=== PATIENT | male | born 1955 | race Caucasian/White ===

== ENCOUNTER 2021-02-14 17:56 | Inpatient (IN) | payer BC, MEDICARE ==
[~2021-02-14] VITALS: Ht 177.8 cm; Wt 130.9 kg
[~2021-02-14 17:56] MED LIST: Acetaminophen325 M1 PO; GLIP5ER PO; JANUMET XR 1001 EAC1 PO; PRED20 PO; VISBIOME 112.51 EACH PO; XARELTO20 MG PO
[2021-02-14 19:18] LABS: BASOPHILS ABSOLUTE AUTO 0.07 K/mm3 (0.00-0.23); BASOPHILS PERCENT AUTO 0 % (0-2); EOSINOPHILS ABSOLUTE AUTO 0.14 K/mm3 (0.00-0.68); EOSINOPHILS PERCENT AUTO 1 % (0-6); Hematocrit 33.7 % (37.0-53.0); Hemoglobin 11.1 g/dL (13.5-17.5); IMMATURE GRAN PERCENT AUTO 1 % (0-1); LYMPHOCYTES PERCENT AUTO 15 % (21-46); MONOCYTES PERCENT AUTO 10 % (4-13); Mean Corpuscular HGB Conc 32.9 g/dL (31.5-36.5); Mean Corpuscular Volume 91 fL (80-100); NEUTROPHILS ABSOLUTE AUTO 11.76 K/mm3 (1.96-9.15); NEUTROPHILS PERCENT AUTO 73 % (41-73); Platelet Count 300 K/mm3 (150-400); RDW Coefficient Variation 14.6 % (11.7-14.2); RDW Standard Deviation 49.1 fL (35.1-46.3); White Blood Cell Count 16.07 K/mm3 (4.00-11.30)
[2021-02-14 20:10] LABS: Alanine Aminotransfer (ALT/SGP 17 U/L (12-78); Albumin, Blood 2.8 g/dL (3.4-5.0); Albumin/Globulin Ratio 0.6 (0.8-1.8); Alk Phos 82 U/L (50-136); Anion Gap 8 mmol/L (6-16); Aspartate Aminotrans (AST/SGOT 14 U/L (12-37); Bilirubin, Total 0.8 mg/dL (0.1-1.0); Blood Urea Nitrogen 44 mg/dL (8-24); Bun/Creatinine Ratio 23.2 (12.0-20.0); CO2, Blood 22 mmol/L (21-32); Chloride, Blood 102 mmol/L (98-108); Globulin, Blood 4.8 g/dL (2.2-4.0); Glomerular Filtration Rate 36 (60-); Glucose, Blood 150 mg/dL (70-99); Potassium, Blood 4.2 mmol/L (3.5-5.5); Sodium, Blood 132 mmol/L (136-145); Total Protein, Blood 7.6 g/dL (6.4-8.2)
[2021-02-14 20:31] LABS: C-REACTIVE PROTEIN, EXT RANGE >19.000 mg/dL (0.000-0.300)
[2021-02-14] MEDS ORDERED: ATOR10 PO (20:33)
[2021-02-14] MEDS ORDERED: COLCRYS0.6 M1 PO (20:33)
[2021-02-14] MEDS ORDERED: LANSOPRAZOLE30 MG PO (20:33)
[2021-02-14] MEDS ORDERED: OMEGA-3 FISH O1 EAC6 PO (20:33)
[2021-02-14] MEDS ORDERED: BASAGLAR K100 UNIT/3 SC (20:34)
[2021-02-14] MEDS ORDERED: JANUMET XR 1001 EAC1 PO (20:34)
[2021-02-14] MEDS ORDERED: HUMALOG KW100 UNIT/1 SC (20:35)
[2021-02-14] MEDS ORDERED: GLIP5ER PO (20:36)
[2021-02-14] MEDS ORDERED: LISINOPRIL-HCT1 EAC1 PO (20:36)
[2021-02-14] MEDS ORDERED: Aspir 8181 MG PO (20:37)
[2021-02-14 21:07] LABS: Body Fluid Crystals NEG (NEGATIVE)
[2021-02-14] MEDS ORDERED: GLUCOPHAGE1000 M1 PO (21:12)
[2021-02-14] MEDS ORDERED: OZEMPIC0.25 MG/0. SC (21:14)
[2021-02-14] MEDS ORDERED: Vitamin B Comple1 EA PO (21:15)
[2021-02-14] MEDS ORDERED: VITAMIN D5000 UNIT PO (21:15)
[2021-02-14] MEDS ORDERED: MONDOXYNE NL100 MG PO (21:16)
[2021-02-14 23:44] LABS: Source, Urine Clean Catch
[2021-02-14 23:49] LABS: Appearance, Urine Clear (Clear); Bilirubin, Urine Neg (Neg); Blood, Urine 1+ (Neg); Color, Urine Amber (P-Yellow); Glucose Qualitative, Urine Neg (Neg); Ketones, Urine Neg (Neg); Leukocyte Esterase, Urine Neg (Neg); Nitrite, Urine Neg (Neg); Protein, Urine 2+ (Neg); Specific Gravity, Urine 1.015 (1.003-1.022); Urobilinogen, Urine NORM (Normal)
[2021-02-15 00:02] LABS: Amorphous Light (0-Heavy); Bacteria Few /hpf; Red Blood Cells, Urine 0-2 /hpf (0-2); Squamous Epithelial Cells Not Seen /hpf (Few); White Blood Cells, Urine 0-2 /hpf (0-5)
--- NOTE | 2021-02-15 00:20 | NUR ---
ASSUME CARE: RECEIVED REPORT FROM ROGELIO WASHINGTON WHO BROUGHT PT FROM ED AND WAS TRANSFERRED TO ICU BED. HE IS A&O X 4 AND IS ABLE TO AMBULATE. ON ROOM AIR HE IS SATING 94%. HR IS 100'S AND BP IS SOFT BUT MAP>65. HE IS NPO, DENIES PAIN, AND IS AFEBRILE. HIS LEFT FOOT IS RED, SWOLLEN, AND TENDER TO TOUCH. SEE SHIFT UPDATE FOR DETAILS.
[2021-02-15 00:26] LABS: SARS-Cov-2 (COVID-19) PCR, MMC NEGATIVE (NEGATIVE)
[2021-02-15 03:37] LABS: BASOPHILS ABSOLUTE AUTO 0.08 K/mm3 (0.00-0.23); BASOPHILS PERCENT AUTO 1 % (0-2); EOSINOPHILS ABSOLUTE AUTO 0.17 K/mm3 (0.00-0.68); EOSINOPHILS PERCENT AUTO 1 % (0-6); Hematocrit 31.3 % (37.0-53.0); Hemoglobin 10.2 g/dL (13.5-17.5); IMMATURE GRAN ABSOLUTE AUTO 0.19 K/mm3 (0.00-0.10); IMMATURE GRAN PERCENT AUTO 1 % (0-1); LYMPHOCYTES ABSOLUTE AUTO 2.29 K/mm3 (0.84-5.20); LYMPHOCYTES PERCENT AUTO 15 % (21-46); MONOCYTES ABSOLUTE AUTO 1.59 K/mm3 (0.16-1.47); MONOCYTES PERCENT AUTO 10 % (4-13); Mean Corpuscular HGB 30.3 pg (26.0-34.0); Mean Corpuscular HGB Conc 32.6 g/dL (31.5-36.5); Mean Corpuscular Volume 93 fL (80-100); Mean Platelet Volume 9.7 fL (9.1-12.4); NEUTROPHILS ABSOLUTE AUTO 11.12 K/mm3 (1.96-9.15); NEUTROPHILS PERCENT AUTO 72 % (41-73); Platelet Count 246 K/mm3 (150-400); RDW Coefficient Variation 14.6 % (11.7-14.2); Red Blood Cell Count 3.37 M/mm3 (4.30-5.90); White Blood Cell Count 15.44 K/mm3 (4.00-11.30)
[2021-02-15 04:04] LABS: Albumin, Blood 2.4 g/dL (3.4-5.0); Albumin/Globulin Ratio 0.5 (0.8-1.8); Bilirubin, Total 0.7 mg/dL (0.1-1.0); Bun/Creatinine Ratio 24.6 (12.0-20.0); Calcium, Blood 8.7 mg/dL (8.5-10.1); Creatinine, Blood 1.75 mg/dL (0.60-1.20); Globulin, Blood 4.6 g/dL (2.2-4.0); Potassium, Blood 3.9 mmol/L (3.5-5.5)
--- NOTE | 2021-02-15 06:24 | NUR ---
SHIFT SUMMARY: PT LYING IN BED W/ EYES CLOSED ON ROOM AIR CURRENTLY SATING 93%. HR IS 118, BP 114/60, AND TMAX OF 100.8. HE IS A&O X 4 AND AMBULATES W/ A WALKER. HE USES A URINAL BUT GETS UP TO THE TOLIET FOR BM. HE IS NPO AND DENIES PAIN. HIS LEFT FOOT IS RED, SWOLLEN, AND TENDER TO TOUCH. NS INFUSING AT 100ML/HR. WILL REPORT TO ONCOMING RN WHEN AVAILABLE.
--- NOTE | 2021-02-15 07:15 | NUR ---
Assumed care. Report received from nightshift RN. Pt resting in bed at this time, on room air. IV access x2 in L/arm. NS running at 100 ml/hr. Pt alert and oriented, able to easily communicate needs and use call light. No acute needs noted at this time, will continue to monitor.
[2021-02-15 09:21] LABS: Vancomycin, Random 15.1 ug/mL
--- NOTE | 2021-02-15 10:26 | NUR ---
Physician contacted. Dr. Bain contacted about results of PT ankle CT, his recommendation was two weeks of at home antibiotic therapy after IV antibiotics complete and refer to Dr Lawson for medication/npo updates. Obtained orders from Dr. Lawson for status change to Medical w/o tele, off NPO to ADA diet and CPAP for sleep. Dr Lawson is also reviewing patient's medication list at this time.
--- NOTE | 2021-02-15 18:05 | NUR ---
Shift summary. Pt rested in bed throughout shift. Pt alert and oriented. On room air w/CPAP for sleep. NS running at 100 ml/hr. Pt reported improvement in pain/swelling of left ankle this shift. See shift assessment for details. Will continue to monitor and report off to nightshift RN.
--- NOTE | 2021-02-16 07:36 | NUR ---
ASSUMED CARE: DR BARBOUR CAME TO SEE PT THIS AM AND IS AWARE OF BLOOD CULTURE. ORDERED TO TAKE PT OFF VANCO AND CONTINUE CEFEPIME AT THIS TIME. PLANS TO SWITCH PT TO ORAL ANTIBIOTICS LATER THIS SHIFT AND POSSIBLE DC TOMORROW. PT AGREEABLE TO THIS PLAN. PT UPRIGHT IN CHAIR AT THIS TIME. NO ACUTE NEEDS OR CONCERNS.
[2021-02-16 11:39] LABS: BASOPHILS ABSOLUTE AUTO 0.08 K/mm3 (0.00-0.23); BASOPHILS PERCENT AUTO 1 % (0-2); EOSINOPHILS ABSOLUTE AUTO 0.27 K/mm3 (0.00-0.68); EOSINOPHILS PERCENT AUTO 2 % (0-6); IMMATURE GRAN ABSOLUTE AUTO 0.13 K/mm3 (0.00-0.10); IMMATURE GRAN PERCENT AUTO 1 % (0-1); LYMPHOCYTES ABSOLUTE AUTO 1.51 K/mm3 (0.84-5.20); LYMPHOCYTES PERCENT AUTO 12 % (21-46); MONOCYTES ABSOLUTE AUTO 0.92 K/mm3 (0.16-1.47); MONOCYTES PERCENT AUTO 7 % (4-13); Mean Corpuscular HGB 29.7 pg (26.0-34.0); Mean Corpuscular HGB Conc 32.3 g/dL (31.5-36.5); Mean Corpuscular Volume 92 fL (80-100); Mean Platelet Volume 9.8 fL (9.1-12.4); NEUTROPHILS ABSOLUTE AUTO 9.95 K/mm3 (1.96-9.15); NEUTROPHILS PERCENT AUTO 77 % (41-73); Platelet Count 285 K/mm3 (150-400); RDW Coefficient Variation 14.6 % (11.7-14.2); RDW Standard Deviation 49.2 fL (35.1-46.3); Red Blood Cell Count 3.37 M/mm3 (4.30-5.90); White Blood Cell Count 12.86 K/mm3 (4.00-11.30)
[2021-02-16 12:07] LABS: Albumin, Blood 2.2 g/dL (3.4-5.0); Anion Gap 8 mmol/L (6-16); Blood Urea Nitrogen 26 mg/dL (8-24); Bun/Creatinine Ratio 21.8 (12.0-20.0); CO2, Blood 24 mmol/L (21-32); Calcium, Blood 8.8 mg/dL (8.5-10.1); Chloride, Blood 105 mmol/L (98-108); Creatinine, Blood 1.19 mg/dL (0.60-1.20); Glomerular Filtration Rate >60 (60-); Glucose, Blood 226 mg/dL (70-99); Phosphorus, Blood 2.1 mg/dL (2.5-4.9); Potassium, Blood 3.9 mmol/L (3.5-5.5); Sodium, Blood 137 mmol/L (136-145)
[2021-02-16] MEDS ORDERED: Cleocin HCl150 MG PO (16:36)
--- NOTE | 2021-02-16 17:01 | NUR ---
DR BARBOUR CAME TO SEE PT AND ORDERED FOR DISCHARGE. PRESCRIPTION CALLED INTO [facility]. PT'S IV DC'D WNL. PT GIVEN INSTRUCTIONS REGARDING INFECTION MONITORING AND SYMPTOMS TO WATCH FOR. PT AWARE OF WHAT MEDICATIONS TO CONTINUE AND WHICH TO STOP. PT ALSO INSTRUCTED TO TAKE YOGURT OR PROBIOTICS TO HELP WITH SIDE EFFECTS OF ANTIBIOTICS. DENIED FURTHER NEEDS OR CONCERNS. ESCORTED OUT VIA WHEEL CHAIR BY HOSPITAL STAFF
--- NOTE | 2021-02-17 08:26 | NUR ---
Per Dr. Lawson discharge appropriate for 02/16/21. Spoke with patient and he is aware of discharge and does not oppose. Patient s is with him at time of discharge and she is driving him to their residence. Patient has the following DME at his residence in good repair: bathroom set-up: both WIS and shower/ tub,shower chair available, grab bars outside WIS; tall toilet c/ grab bars/wheeled walker/front wheeled walker. Patient has a scheduled follow up appointment with Dr. Cohn on 02/22 at 3:30 pm. Patient also has a routine follow up on Mar 07. Patient has a strong and stable support network. No barriers to discharge at this time.
== END 2021-02-16 17:01 | disposition home or self-care (01) | DRG 872 ==
LOC: ER 17:56 → ICUW 23:28
PROVIDERS: Family Medicine; Physician Assistant; Student in an Organized Health Care Education/Training Program; ADMIT Internal Medicine
PROC: 0S9G3ZX Drainage of Left Ankle Joint, Percutaneous Approach, Diagnostic (ICD-10-PCS; principal; 2021-02-14)
DX: A41.9 Sepsis, unspecified organism (principal); E87.1 Hypo-osmolality and hyponatremia; N17.9 Acute kidney failure, unspecified; L03.115 Cellulitis of right lower limb; Z68.41 Body mass index [BMI] 40.0-44.9, adult; Z20.822 Contact with and (suspected) exposure to COVID-19; M10.9 Gout, unspecified; E66.9 Obesity, unspecified; I10 Essential (primary) hypertension; E11.9 Type 2 diabetes mellitus without complications; Z79.4 Long term (current) use of insulin; Z86.16 Personal history of COVID-19; Z79.82 Long term (current) use of aspirin; Z79.899 Other long term (current) drug therapy
CPT/HCPCS: 20605; 36415; 51798; 71045; 73701; 80053; 80069; 80202; 81001; 82947; 83605; 83880; 85025; 85651; 86140; 87040; 87070; 87075; 87205; 89060; 93005; 93010; 94660; 96365; 96375; 97110; 97162; 97165; 99285-25; A9270; J0692; J1170; J1644; J1815; J2543; J3370; J7030; J7050; J7120; Q9967; U0004

== ENCOUNTER → 2021-06-25 | Outpatient (CLI) | payer BC ==
[~2021-06-25] MED LIST changes: +ATOR10 PO; +Aspir 8181 MG PO; +BASAGLAR K100 UNIT/3 SC; +COLCRYS0.6 M1 PO; +Cleocin HCl150 MG PO; +GLUCOPHAGE1000 M1 PO; +HUMALOG KW100 UNIT/1 SC; +LANSOPRAZOLE30 MG PO; +LISINOPRIL-HCT1 EAC1 PO; +MONDOXYNE NL100 MG PO; +OMEGA-3 FISH O1 EAC6 PO; +OZEMPIC0.25 MG/0. SC; +VITAMIN D5000 UNIT PO; +Vitamin B Comple1 EA PO
[2021-06-25 14:46] LABS: BASOPHILS ABSOLUTE AUTO 0.12 K/mm3 (0.00-0.23); BASOPHILS PERCENT AUTO 1 % (0-2); EOSINOPHILS ABSOLUTE AUTO 0.43 K/mm3 (0.00-0.68); EOSINOPHILS PERCENT AUTO 5 % (0-6); Hematocrit 40.7 % (37.0-53.0); Hemoglobin 13.6 g/dL (13.5-17.5); IMMATURE GRAN ABSOLUTE AUTO 0.05 K/mm3 (0.00-0.10); IMMATURE GRAN PERCENT AUTO 1 % (0-1); LYMPHOCYTES ABSOLUTE AUTO 3.84 K/mm3 (0.84-5.20); LYMPHOCYTES PERCENT AUTO 43 % (21-46); MONOCYTES ABSOLUTE AUTO 0.71 K/mm3 (0.16-1.47); MONOCYTES PERCENT AUTO 8 % (4-13); Mean Corpuscular HGB 28.9 pg (26.0-34.0); Mean Corpuscular HGB Conc 33.4 g/dL (31.5-36.5); Mean Corpuscular Volume 86 fL (80-100); Mean Platelet Volume 9.9 fL (9.1-12.4); NEUTROPHILS ABSOLUTE AUTO 3.88 K/mm3 (1.96-9.15); NEUTROPHILS PERCENT AUTO 43 % (41-73); Platelet Count 262 K/mm3 (150-400); RDW Coefficient Variation 15.2 % (11.7-14.2); RDW Standard Deviation 47.4 fL (35.1-46.3); Red Blood Cell Count 4.71 M/mm3 (4.30-5.90); White Blood Cell Count 9.03 K/mm3 (4.00-11.30)
[2021-06-25 14:57] LABS: Albumin, Blood 3.6 g/dL (3.4-5.0); Albumin/Globulin Ratio 0.8 (0.8-1.8); Bilirubin, Total 0.5 mg/dL (0.1-1.0); Bun/Creatinine Ratio 18.6 (12.0-20.0); Calcium, Blood 9.5 mg/dL (8.5-10.1); Creatinine, Blood 1.67 mg/dL (0.60-1.20); Globulin, Blood 4.4 g/dL (2.2-4.0); Potassium, Blood 4.6 mmol/L (3.5-5.5); Uric Acid, Blood 10.4 mg/dL (3.5-7.2)
== END ==
LOC: LAB SHORT 14:39
PROVIDERS: General Practice
DX: S96.911A Strain of unspecified muscle and tendon at ankle and foot level, right foot, initial encounter (principal); Z79.82 Long term (current) use of aspirin
CPT/HCPCS: 80053; 84550; 85025; 85651

== ENCOUNTER → 2022-02-10 | Outpatient (CLI) | payer BC | END | disposition home or self-care (01) | LOC: LAB SHORT 13:22 → LAB 13:22 | DX: N39.0 Urinary tract infection, site not specified (principal) | CPT/HCPCS: 87077; 87086; 87186 ==

== ENCOUNTER 2022-03-25 11:54 | Emergency (ER) | payer BC ==
[~2022-03-25] VITALS: Ht 177.8 cm; Wt 122.5 kg
[2022-03-25 12:28] LABS: BASOPHILS ABSOLUTE AUTO 0.09 K/mm3 (0.00-0.23); BASOPHILS PERCENT AUTO 1 % (0-2); EOSINOPHILS ABSOLUTE AUTO 0.33 K/mm3 (0.00-0.68); EOSINOPHILS PERCENT AUTO 4 % (0-6); Hematocrit 45.1 % (37.0-53.0); IMMATURE GRAN ABSOLUTE AUTO 0.05 K/mm3 (0.00-0.10); IMMATURE GRAN PERCENT AUTO 1 % (0-1); LYMPHOCYTES ABSOLUTE AUTO 2.67 K/mm3 (0.84-5.20); LYMPHOCYTES PERCENT AUTO 34 % (21-46); MONOCYTES PERCENT AUTO 8 % (4-13); Mean Corpuscular HGB 29.9 pg (26.0-34.0); Mean Corpuscular HGB Conc 33.3 g/dL (31.5-36.5); Mean Corpuscular Volume 90 fL (80-100); Mean Platelet Volume 9.9 fL (9.1-12.4); NEUTROPHILS ABSOLUTE AUTO 4.14 K/mm3 (1.96-9.15); NEUTROPHILS PERCENT AUTO 53 % (41-73); Platelet Count 209 K/mm3 (150-400); RDW Coefficient Variation 13.4 % (11.7-14.2); RDW Standard Deviation 44.1 fL (35.1-46.3); Red Blood Cell Count 5.01 M/mm3 (4.30-5.90); White Blood Cell Count 7.88 K/mm3 (4.00-11.30)
[2022-03-25 12:50] LABS: Albumin, Blood 3.6 g/dL (3.4-5.0); Albumin/Globulin Ratio 0.8 (0.8-1.8); Bilirubin, Total 0.4 mg/dL (0.1-1.0); Bun/Creatinine Ratio 22.3 (12.0-20.0); Calcium, Blood 10.4 mg/dL (8.5-10.1); Creatinine, Blood 1.12 mg/dL (0.60-1.20); Globulin, Blood 4.4 g/dL (2.2-4.0); Potassium, Blood 4.7 mmol/L (3.5-5.5)
== END 2022-03-25 15:37 | disposition home or self-care (01) ==
LOC: ER 11:54
PROVIDERS: Student in an Organized Health Care Education/Training Program
DX: R10.10 Upper abdominal pain, unspecified (principal); E11.9 Type 2 diabetes mellitus without complications; I10 Essential (primary) hypertension; Z79.4 Long term (current) use of insulin; Z79.899 Other long term (current) drug therapy
CPT/HCPCS: 36415; 71045; 80053; 83690; 84484; 85025

== ENCOUNTER 2024-02-24 09:18 | Emergency (ER) | payer MEDICARE ==
[~2024-02-24] VITALS: Ht 177.8 cm; Wt 124.7 kg
[~2024-02-24 09:18] MED LIST changes: +ALLO300 PO; +AMOCLA875 PO; +CEFP200 PO; +HUMALOG KW100 UNIT/1; +INSULANI SC; +JARDIANCE10 MG PO; +LACT PO; +Lisinopril-Hct1 EAC4 PO; +MIRALAX1714 PO; +RYBELSUS14 MG PO; +TRULICITY3 MG/0.5 M SC
[2024-02-24 09:59] VITALS: BP 160/97
== END 2024-02-24 10:49 | disposition home or self-care (01) ==
LOC: ER 09:18
DX: M77.11 Lateral epicondylitis, right elbow (principal); M77.01 Medial epicondylitis, right elbow; E11.9 Type 2 diabetes mellitus without complications; I10 Essential (primary) hypertension; Z79.82 Long term (current) use of aspirin; Z79.84 Long term (current) use of oral hypoglycemic drugs; Z79.4 Long term (current) use of insulin; Z79.899 Other long term (current) drug therapy
CPT/HCPCS: 73080; 99283-25

== ENCOUNTER 2024-06-17 18:15 | Inpatient (IN) | payer MEDICARE ==
[~2024-06-17] VITALS: Ht 172.7 cm; Wt 109.7 kg
[2024-06-17 19:23] LABS: BASOPHILS ABSOLUTE AUTO 0.11 K/mm3 (0.00-0.23); BASOPHILS PERCENT AUTO 1 % (0-2); EOSINOPHILS ABSOLUTE AUTO 0.34 K/mm3 (0.00-0.68); EOSINOPHILS PERCENT AUTO 4 % (0-6); IMMATURE GRAN ABSOLUTE AUTO 0.04 K/mm3 (0.00-0.10); IMMATURE GRAN PERCENT AUTO 0 % (0-1); LYMPHOCYTES ABSOLUTE AUTO 1.93 K/mm3 (0.84-5.20); LYMPHOCYTES PERCENT AUTO 22 % (21-46); MONOCYTES ABSOLUTE AUTO 0.97 K/mm3 (0.16-1.47); MONOCYTES PERCENT AUTO 11 % (4-13); Mean Corpuscular HGB 29.2 pg (26.0-34.0); Mean Corpuscular HGB Conc 34.1 g/dL (31.5-36.5); Mean Corpuscular Volume 85 fL (80-100); Mean Platelet Volume 10.4 fL (9.1-12.4); NEUTROPHILS ABSOLUTE AUTO 5.51 K/mm3 (1.96-9.15); NEUTROPHILS PERCENT AUTO 62 % (41-73); Platelet Count 277 K/mm3 (150-400); RDW Coefficient Variation 14.6 % (11.7-14.2)
[2024-06-17 19:45] LABS: Alanine Aminotransfer (ALT/SGP 46 U/L (12-78); Albumin, Blood 3.9 g/dL (3.4-5.0); Albumin/Globulin Ratio 0.9 (0.8-1.8); Alk Phos 110 U/L (50-136); Anion Gap 16 mmol/L (3-11); Aspartate Aminotrans (AST/SGOT 31 U/L (12-37); Bilirubin, Total 0.5 mg/dL (0.1-1.0); Blood Urea Nitrogen 142 mg/dL (8-24); Bun/Creatinine Ratio 34.3 (12.0-20.0); CO2, Blood 18 mmol/L (21-32); Calcium, Blood 9.8 mg/dL (8.5-10.1); Chloride, Blood 99 mmol/L (98-108); Creatinine, Blood 4.14 mg/dL (0.60-1.20); Globulin, Blood 4.5 g/dL (2.2-4.0); Glomerular Filtration Rate 15 (60-); Glucose, Blood 233 mg/dL (70-99); Potassium, Blood 4.7 mmol/L (3.5-5.5); Sodium, Blood 128 mmol/L (136-145); Total Protein, Blood 8.4 g/dL (6.4-8.2)
[2024-06-17] MEDS ORDERED: Lactated Ringer's 1,000 ML IV ONE ×2 (20:55→21:05)
[2024-06-17 21:15] LABS: Influenza A, PCR NEGATIVE (NEGATIVE); Influenza B, PCR NEGATIVE (NEGATIVE); Resp Syncytial Virus, PCR NEGATIVE (NEGATIVE); SARS-Cov-2 (COVID-19) PCR, MMC NEGATIVE (NEGATIVE)
[2024-06-17 21:31] LABS: Base Excess Venous -8.1 mmol/L; Bicarbonate Venous 18.2 mmol/L (24.0-30.0); PCO2 Venous 36.7 mmHg (38-42); pH Blood Venous 7.31 (7.34-7.37)
[2024-06-17 21:38] LABS: Salicylate <1.7 mg/dL (2.8-20.0)
[2024-06-17 21:40] LABS: Acetaminophen, Random <2.0 ug/mL (10.0-30.0)
[2024-06-17] MEDS ORDERED: Acetaminophen 325 MG TABLET PO PRN (22:40)
[2024-06-17] MEDS ORDERED: Ondansetron HCl 2 MG / ML 2ML Vial IV PRN (22:40)
[2024-06-17] MEDS ORDERED: FLU VACC TS2024-25(6MOS UP)/PF 45 MCG/0.5 ML SYRINGE IM ONE (22:40)
[2024-06-17] MEDS ORDERED: Sodium Bicarb 8.4% Inj 100 MEQ in Sodium Chloride 0.45% 1,000 ML IV SCH (23:00)
[2024-06-17] MEDS ORDERED: Insulin Glargine-Yfgn 100 Unit/mL 3 ML SYR SC SCH (23:00)
[2024-06-18] VITALS (8 sets, daily range): BP systolic 96–116; BP diastolic 51–72
[2024-06-18] MEDS ORDERED: RYBELSUS14 MG PO (00:47)
[2024-06-18] MEDS ORDERED: CLIN150 PO (00:48)
[2024-06-18] MEDS ORDERED: LANS30EC PO (00:51)
[2024-06-18] MEDS ORDERED: EPIPEN0.3 MG/0.3 IM (00:52)
[2024-06-18 01:04] LABS: Albumin, Blood 3.3 g/dL (3.4-5.0); Anion Gap 11 mmol/L (3-11); Blood Urea Nitrogen 136 mg/dL (8-24); Bun/Creatinine Ratio 34.7 (12.0-20.0); CO2, Blood 21 mmol/L (21-32); Calcium, Blood 9.4 mg/dL (8.5-10.1); Chloride, Blood 101 mmol/L (98-108); Creatinine, Blood 3.92 mg/dL (0.60-1.20); Glomerular Filtration Rate 16 (60-); Glucose, Blood 148 mg/dL (70-99); Potassium, Blood 4.3 mmol/L (3.5-5.5); Sodium, Blood 129 mmol/L (136-145)
--- NOTE | 2024-06-18 04:07 | NUR ---
UPDATE JÚNIOR FROM [place] [facility] CALLED FOR [facility] REGARDING PT CONDITION. UPDATE ON PATIENT GIVEN, [facility] TO CALL BACK LATER THIS AM FOR MORNING LABS.
[2024-06-18 04:15] LABS: BASOPHILS PERCENT AUTO 1 % (0-2); EOSINOPHILS ABSOLUTE AUTO 0.51 K/mm3 (0.00-0.68); EOSINOPHILS PERCENT AUTO 7 % (0-6); Hematocrit 34.5 % (37.0-53.0); Hemoglobin 11.8 g/dL (13.5-17.5); IMMATURE GRAN ABSOLUTE AUTO 0.02 K/mm3 (0.00-0.10); IMMATURE GRAN PERCENT AUTO 0 % (0-1); LYMPHOCYTES ABSOLUTE AUTO 2.55 K/mm3 (0.84-5.20); LYMPHOCYTES PERCENT AUTO 35 % (21-46); MONOCYTES ABSOLUTE AUTO 0.82 K/mm3 (0.16-1.47); MONOCYTES PERCENT AUTO 11 % (4-13); Mean Corpuscular HGB 29.1 pg (26.0-34.0); Mean Corpuscular HGB Conc 34.2 g/dL (31.5-36.5); Mean Corpuscular Volume 85 fL (80-100); Mean Platelet Volume 10.5 fL (9.1-12.4); NEUTROPHILS ABSOLUTE AUTO 3.35 K/mm3 (1.96-9.15); NEUTROPHILS PERCENT AUTO 46 % (41-73); Platelet Count 212 K/mm3 (150-400); RDW Coefficient Variation 14.6 % (11.7-14.2); Red Blood Cell Count 4.05 M/mm3 (4.30-5.90); White Blood Cell Count 7.35 K/mm3 (4.00-11.30)
[2024-06-18 04:49] LABS: Albumin, Blood 3.1 g/dL (3.4-5.0); Albumin/Globulin Ratio 0.8 (0.8-1.8); Bilirubin, Total 0.4 mg/dL (0.1-1.0); Bun/Creatinine Ratio 36.1 (12.0-20.0); Calcium, Blood 9.2 mg/dL (8.5-10.1); Creatinine, Blood 3.57 mg/dL (0.60-1.20); Globulin, Blood 3.7 g/dL (2.2-4.0); Magnesium, Blood 2.5 mg/dL (1.6-2.4); Potassium, Blood 4.1 mmol/L (3.5-5.5); Total Protein, Blood 6.8 g/dL (6.4-8.2)
[2024-06-18] MEDS ORDERED: Insulin Human Lispro 100 Units/ML 3ML Syringe SC SCH (07:30)
[2024-06-18] MEDS ORDERED: Heparin Sodium 5000 Units/ML 1ML MDV SC SCH (09:00)
[2024-06-18] MEDS ORDERED: Misc. Tablet PO SCH (13:00)
[2024-06-18] MEDS ORDERED: OxyCODONE HCL 5 MG TAB PO PRN (16:10)
[2024-06-18] MEDS ORDERED: Pantoprazole Sodium 40 MG Tab PO SCH (16:30)
--- NOTE | 2024-06-18 18:30 | NUR ---
SHIFT SUMMARY: PT A&OX4, FOLLOWS COMMANDS AND MAKES NEEDS KNOWN TO STAFF. PT REMAINED FREE OF ANY CP OR SOB DURING SHIFT AND DENIED ANY OTHER COMPLAINTS DURING SHIFT. VSS. MAP HAS REMAINED >65. PT USED URINAL AT BEDSIDE. NO OTHER SIGNIFICANT EVENTS HAPPENED DURING THIS SHIFT. WILL CONTINUE TO CARE FOR PT TILL END OF SHIFT.
[2024-06-18] MEDS ORDERED: NS 1,000 ML IV SCH (20:20)
[2024-06-19 04:20] VITALS: BP 99/60
--- NOTE | 2024-06-19 04:30 | NUR ---
SHIFT SUMMURY: ALERT AND ORIENTED X 4. NO MOTOR OR SENSORY DEFICIT. MAINTAINED CPAP AT BEDTIME. O2 SATURATION > 90. VS MAP >65. DENIES CHESTPAIN. NORMAL HEART RATE AT 97 AND REGULAR RYTHM.
[2024-06-19 04:41] LABS: BASOPHILS ABSOLUTE AUTO 0.07 K/mm3 (0.00-0.23); BASOPHILS PERCENT AUTO 1 % (0-2); EOSINOPHILS ABSOLUTE AUTO 0.72 K/mm3 (0.00-0.68); EOSINOPHILS PERCENT AUTO 12 % (0-6); Hemoglobin 11.5 g/dL (13.5-17.5); IMMATURE GRAN ABSOLUTE AUTO 0.02 K/mm3 (0.00-0.10); IMMATURE GRAN PERCENT AUTO 0 % (0-1); LYMPHOCYTES PERCENT AUTO 38 % (21-46); MONOCYTES ABSOLUTE AUTO 0.71 K/mm3 (0.16-1.47); MONOCYTES PERCENT AUTO 12 % (4-13); Mean Corpuscular HGB 28.9 pg (26.0-34.0); Mean Corpuscular HGB Conc 33.8 g/dL (31.5-36.5); Mean Corpuscular Volume 85 fL (80-100); Mean Platelet Volume 11.1 fL (9.1-12.4); NEUTROPHILS ABSOLUTE AUTO 2.18 K/mm3 (1.96-9.15); NEUTROPHILS PERCENT AUTO 36 % (41-73); Platelet Count 176 K/mm3 (150-400); RDW Coefficient Variation 14.6 % (11.7-14.2); RDW Standard Deviation 45.8 fL (35.1-46.3); Red Blood Cell Count 3.98 M/mm3 (4.30-5.90)
[2024-06-19 05:11] LABS: Albumin, Blood 3.1 g/dL (3.4-5.0); Anion Gap 9 mmol/L (3-11); Blood Urea Nitrogen 81 mg/dL (8-24); Bun/Creatinine Ratio 46.8 (12.0-20.0); CO2, Blood 24 mmol/L (21-32); Calcium, Blood 9.2 mg/dL (8.5-10.1); Chloride, Blood 105 mmol/L (98-108); Creatinine, Blood 1.73 mg/dL (0.60-1.20); Glomerular Filtration Rate 42 (60-); Glucose, Blood 130 mg/dL (70-99); Phosphorus, Blood 3.3 mg/dL (2.5-4.9); Potassium, Blood 4.1 mmol/L (3.5-5.5); Sodium, Blood 134 mmol/L (136-145)
[2024-06-19 07:35] VITALS: BP 108/67
--- NOTE | 2024-06-19 07:40 | NUR ---
AM ASSESSMENT: Pt resting in room. Denies pain, CP, weakness, dizziness or SOB. States that he is feeling good. LS clear. HR reg. BT positive. PUlses palp. PT voiding clear, yellow urine. Call light in reach. Denies questions.
[2024-06-19 15:35] VITALS: BP 113/76
--- NOTE | 2024-06-19 17:14 | NUR ---
SHIFT SUMMARY: Pt has done well this shift. Has remained in NSR, LS clear, BT positive. IVF running throughout day per orders. Pt has been up independently in room and walking in halls. States that he is feeling good. VSS throughout the shift. WIll report to night RN. Stable at end of shift.
[2024-06-19] MEDS ORDERED: DEXTROMETHORPHAN/BENZOCAINE 1 EACH LOZENGE MT PRN (17:15)
[2024-06-19 20:04] VITALS: BP 109/69
[2024-06-19 23:44] VITALS: BP 103/71
--- NOTE | 2024-06-20 05:44 | NUR ---
VSS, IVF infusing, adequate urine output, pleasant, converses appropiately, no conerns at this time. Independent in room, steady gait observed by marketing writer, PRN medication for sore tooth extraction prior to admission provided (refer to eMAR), able to sleep for majority of shift.
[2024-06-20 07:51] LABS: BASOPHILS ABSOLUTE AUTO 0.06 K/mm3 (0.00-0.23); BASOPHILS PERCENT AUTO 1 % (0-2); EOSINOPHILS ABSOLUTE AUTO 0.74 K/mm3 (0.00-0.68); EOSINOPHILS PERCENT AUTO 13 % (0-6); Hemoglobin 11.6 g/dL (13.5-17.5); IMMATURE GRAN ABSOLUTE AUTO 0.02 K/mm3 (0.00-0.10); IMMATURE GRAN PERCENT AUTO 0 % (0-1); LYMPHOCYTES ABSOLUTE AUTO 2.03 K/mm3 (0.84-5.20); LYMPHOCYTES PERCENT AUTO 35 % (21-46); MONOCYTES ABSOLUTE AUTO 0.59 K/mm3 (0.16-1.47); MONOCYTES PERCENT AUTO 10 % (4-13); Mean Corpuscular HGB 28.9 pg (26.0-34.0); Mean Corpuscular HGB Conc 33.1 g/dL (31.5-36.5); Mean Corpuscular Volume 87 fL (80-100); Mean Platelet Volume 11.2 fL (9.1-12.4); NEUTROPHILS ABSOLUTE AUTO 2.36 K/mm3 (1.96-9.15); NEUTROPHILS PERCENT AUTO 41 % (41-73); Platelet Count 150 K/mm3 (150-400); RDW Coefficient Variation 14.5 % (11.7-14.2); RDW Standard Deviation 46.6 fL (35.1-46.3); Red Blood Cell Count 4.02 M/mm3 (4.30-5.90)
[2024-06-20 08:16] LABS: Bun/Creatinine Ratio 25.3 (12.0-20.0); Calcium, Blood 9.1 mg/dL (8.5-10.1); Creatinine, Blood 1.54 mg/dL (0.60-1.20); Potassium, Blood 3.9 mmol/L (3.5-5.5)
[2024-06-20 08:28] VITALS: BP 114/72
--- NOTE | 2024-06-20 09:48 | NUR ---
DISCHARGE. DR. POLLARD IN THIS MORNING, PATIENT APPROPRIATE FOR DISCHARGE HOME. PATIENT EDICATED ON ILLINESS AND DISCUSSED DISCHARGE INSTRUCTIONS. PATIENT ACKNOWLEDGED DISCHARGE INSTRUCTIONS AND VERBALIZED UNDERSTANDING AND SIGNED DISCHARGE PAPERS. IV REMOVED AND PATIENT ESCORTED OUT BY WHEELCHAIR TO PERSONAL CAR AT THE PATIENT ENTERANCE. PATIENT LEFT HOSPITAL VIA PERSONAL VEHICLE AND .
== END 2024-06-20 10:00 | disposition home or self-care (01) | DRG 683 ==
LOC: ER 18:15 → ERHOLD 22:36 → PCU 22:36
PROVIDERS: Internal Medicine; Student in an Organized Health Care Education/Training Program; ADMIT Student in an Organized Health Care Education/Training Program
DX: N17.9 Acute kidney failure, unspecified (principal); E87.1 Hypo-osmolality and hyponatremia; E87.20 Acidosis, unspecified; E11.65 Type 2 diabetes mellitus with hyperglycemia; E86.0 Dehydration; E11.22 Type 2 diabetes mellitus with diabetic chronic kidney disease; N18.31 Chronic kidney disease, stage 3a; E78.5 Hyperlipidemia, unspecified; I12.9 Hypertensive chronic kidney disease with stage 1 through stage 4 chronic kidney disease, or unspecified chronic kidney disease; G47.33 Obstructive sleep apnea (adult) (pediatric); E66.9 Obesity, unspecified; R63.4 Abnormal weight loss; Z86.16 Personal history of COVID-19; Z79.899 Other long term (current) drug therapy; Z79.82 Long term (current) use of aspirin; Z79.84 Long term (current) use of oral hypoglycemic drugs; Z79.811 Long term (current) use of aromatase inhibitors; Z79.85 Long-term (current) use of injectable non-insulin antidiabetic drugs; Z79.4 Long term (current) use of insulin; Z87.01 Personal history of pneumonia (recurrent); Z86.19 Personal history of other infectious and parasitic diseases; Z68.33 Body mass index [BMI] 33.0-33.9, adult
CPT/HCPCS: 0241U; 36415; 71046; 76770; 80048; 80053; 80069; 82803; 82947; 83036; 83605; 83735; 83880; 84100; 84484; 85025; 85379; 87040; 93005; 93010; 94660; 94760; 94762; 99285-25; A9270; G0480; J1644; J1815; J7030; J7120